=== PATIENT | female | born 1965 | race Two or more races ===

== ENCOUNTER 2016-12-19 09:40 | Emergency (ER) | payer MEDICAID, MEDICARE, OTHER ==
[~2016-12-19] VITALS: Ht 162.6 cm; Wt 54.0 kg
[2016-12-19 10:18] VITALS: BP 171/82
[2016-12-19] MEDS ORDERED: ACETAMINOPHEN 500 MG TAB PO ONE (10:45)
[2016-12-19] MEDS ORDERED: KETOROLAC TROMETH 60MG/2ML VIAL IM ONE (10:45)
== END 2016-12-19 13:44 | disposition home or self-care (01) ==
LOC: ER 09:40 → EDBD 09:40 → ER 13:44
DX: S39.012A Strain of muscle, fascia and tendon of lower back, initial encounter (principal); S76.011A Strain of muscle, fascia and tendon of right hip, initial encounter; I10 Essential (primary) hypertension; G89.29 Other chronic pain; M54.5 Low back pain; V43.52XA Car driver injured in collision with other type car in traffic accident, initial encounter; Y93.89 Activity, other specified; Y92.89 Other specified places as the place of occurrence of the external cause; Y99.8 Other external cause status
CPT/HCPCS: 72100; 73502

== ENCOUNTER 2018-12-05 12:50 | Emergency (ER) | payer OTHER ==
[~2018-12-05] VITALS: Ht 162.6 cm; Wt 68.0 kg
[2018-12-05 14:35] VITALS: BP 148/92
== END 2018-12-05 16:22 | disposition home or self-care (01) ==
LOC: EDBD 12:50 → ER 12:58
DX: S16.1XXA Strain of muscle, fascia and tendon at neck level, initial encounter (principal); S30.0XXA Contusion of lower back and pelvis, initial encounter; R51 Headache; I12.9 Hypertensive chronic kidney disease with stage 1 through stage 4 chronic kidney disease, or unspecified chronic kidney disease; N18.9 Chronic kidney disease, unspecified; Z90.710 Acquired absence of both cervix and uterus; V49.49XA Driver injured in collision with other motor vehicles in traffic accident, initial encounter; Y93.89 Activity, other specified; Y99.8 Other external cause status; Y92.89 Other specified places as the place of occurrence of the external cause
CPT/HCPCS: 70450; 72125; 74176

== ENCOUNTER 2018-12-31 17:56 | Emergency (ER) | payer MEDICAID, OTHER ==
[~2018-12-31] VITALS: Ht 162.6 cm; Wt 61.7 kg
[2018-12-31] MEDS ORDERED: cefTRIAXone SOD 1,000 MG VL IM ONE (20:30)
[2018-12-31] MEDS ORDERED: DexAMETHasone SOD PHOS 10MG/1ML VIAL INJ IM ONE (20:30)
[2018-12-31] MEDS ORDERED: ACETAMINOPHEN/CODEINE#3 (300/30mg) TAB PO ONE (20:30)
[2018-12-31 21:16] VITALS: BP 161/86
== END 2018-12-31 21:38 | disposition home or self-care (01) ==
LOC: ER 18:02
DX: J06.9 Acute upper respiratory infection, unspecified (principal); I12.9 Hypertensive chronic kidney disease with stage 1 through stage 4 chronic kidney disease, or unspecified chronic kidney disease; N18.9 Chronic kidney disease, unspecified; Z90.710 Acquired absence of both cervix and uterus
CPT/HCPCS: 96372; 99283; J0696; J1100

== ENCOUNTER 2020-04-03 14:53 | Inpatient (IN) | payer MEDICAID ==
[~2020-04-03] VITALS: Ht 162.6 cm; Wt 60.2 kg
[2020-04-03 16:25] LABS: Urine Bacteria NONE SEEN /hpf (None Seen); Urine Blood Negative /uL (Negative); Urine Specific Gravity 1.016 (1.001-1.035); Urine WBC 6 /hpf (0 - 5)
[2020-04-03] MEDS ORDERED: ONDANSETRON ODT 4 MG TAB PO ONE (17:30)
[2020-04-03 17:54] LABS: Hemoglobin 12.6 g/dL (12.2-16.2); Mean Corpuscular Hemoglobin 30.4 pg (28.0-32.0); Mean Corpuscular Volume 89.5 fL (80.0-100.0); Red Blood Cells 4.14 10^6/uL (4.0-5.20); Red Cell Distribution Width 13.5 % (11.8-14.3); White Blood Cell 12.2 10^3/uL (4.4-10.8)
[2020-04-03 17:55] LABS: Basophils % (manual) 0 (0.0-2.0); Blast Cells 0; Eosinophils % (manual) 0 (0-7); Metamyelocytes % 0; Monocytes % (manual) 0 (0-12); Promyelocytes % 0; Reactive Lymphocytes 0
[2020-04-03 18:06] LABS: Band Neutrophils % (manual) 20; Lymphocytes % (manual) 1 (10.0-50.0); Myelocytes % 3
[2020-04-03 18:13] LABS: Albumin 2.7 g/dL (3.4-5.0); Calcium 8.6 mg/dL (8.5-10.1); Potassium 4.6 mmol/L (3.5-5.1)
[2020-04-03 18:17] LABS: BUN/Creatinine Ratio 15.5; Bilirubin, Total 0.5 mg/dL (0.2-1.0); Total Protein 6.7 g/dL (6.4-8.2)
[2020-04-03] MEDS ORDERED: ONDANSETRON HCL 4 MG/2 ML VIAL IV PRN (19:45)
[2020-04-03] MEDS ORDERED: REMDESIVIR PER PHARMACY 0 ML IV SCH (19:45)
[2020-04-03] MEDS ORDERED: NITROGLYCERIN 0.4 MG SL TAB SL PRN (19:45)
[2020-04-03] MEDS ORDERED: hydrALAZINE HCL 20 MG/ML VL IV PRN (19:45)
[2020-04-03] MEDS ORDERED: HYDROcodone-ACET 5/325MG TAB PO PRN (19:45)
[2020-04-03] MEDS ORDERED: MORPHINE SULFATE INJECTION 2 MG/ML SYRG IV PRN ×2 (19:45)
[2020-04-03 20:18] LABS: Lactate Dehydrogenase 267 U/L (84-246)
[2020-04-03 20:25] LABS: CRP High Sensitivity > 19.0 mg/dL (< 0.3)
[2020-04-03] MEDS: BUDESONIDE (INHALATION) 180 MCG IH IN SCH (22:00)
[2020-04-03] MEDS ORDERED: REMDESIVIR 200 MG in NS 210ml LOADING DOSE ADULT IV ONE (22:00)
[2020-04-03] MEDS: LABETALOL HCL 200 MG TAB PO SCH (22:43)
[2020-04-03] MEDS: TACROLIMUS 1 MG CAP PO SCH (22:43)
[2020-04-03] MEDS: MYFORTIC 180 MG PO SCH (22:44)
[2020-04-03] MEDS: ENOXAPARIN SOD 40 MG/0.4 ML SYRINGE SC SCH (22:44)
[2020-04-03 23:23] VITALS: BP 125/65
[2020-04-04] MEDS ORDERED: TACR1CAP4 PO ×2 (02:22→14:39)
[2020-04-04] MEDS ORDERED: DILT180C49 PO (02:22)
[2020-04-04] MEDS ORDERED: NITR1CAP23 PO (02:22)
[2020-04-04] MEDS ORDERED: PRED20TA2 PO (02:22)
[2020-04-04] MEDS ORDERED: CINA30TA2 PO (02:22)
[2020-04-04] MEDS ORDERED: ACET-1304 PO ×2 (02:22→02:23)
[2020-04-04] MEDS ORDERED: FOLI1TAB6 PO (02:22)
[2020-04-04] MEDS ORDERED: LABE200T7 PO (02:22)
[2020-04-04] MEDS ORDERED: CHOL20TA PO (02:22)
[2020-04-04] MEDS ORDERED: MYCO180T PO (02:22)
[2020-04-04] MEDS ORDERED: PRED2.5T4 PO ×2 (06:22→14:39)
[2020-04-04] MEDS: ACETAMINOPHEN 500 MG TAB PO PRN (06:59)
[2020-04-04] MEDS: BUDESONIDE (INHALATION) 180 MCG IH IN SCH ×2 (07:12→21:53)
[2020-04-04 07:14] LABS: Basophils # (auto) 0 10 ^3/uL (0-0.2); Basophils % (auto) 0.2 % (0.0-2.0); Eosinophils # (auto) 0 10 ^3/uL (0-0.8); Eosinophils % (auto) 0.1 % (0.0-7.0); Lymphocytes # (auto) 0.4 10 ^3/uL (0.4-5.4); Lymphocytes % (auto) 4.1 % (10.0-50.0); Mean Corpuscular Hemoglobin 30.5 pg (28.0-32.0); Mean Corpuscular Hgb Conc. 34.3 g/dL (32.0-36.0); Mean Corpuscular Volume 88.9 fL (80.0-100.0); Monocytes # (auto) 0.5 10 ^3/uL (0-1.3); Monocytes % (auto) 5.5 % (0.0-12.0); Neutrophils # (auto) 7.6 10 ^3/uL (1.6-8.6); Neutrophils % (auto) 90.1 % (37.0-80.0); Nucleated Red Blood Cells % 0.2 %; Red Blood Cells 3.94 10^6/uL (4.0-5.20); Red Cell Distribution Width 13.8 % (11.8-14.3); White Blood Cell 8.5 10^3/uL (4.4-10.8)
[2020-04-04 07:20] LABS: Potassium 4.4 mmol/L (3.5-5.1)
[2020-04-04 07:36] LABS: Albumin 2.2 g/dL (3.4-5.0); BUN/Creatinine Ratio 14.9; Bilirubin, Total 0.3 mg/dL (0.2-1.0); Calcium 8.4 mg/dL (8.5-10.1)
[2020-04-04 08:00] VITALS: BP 139/67
[2020-04-04] MEDS: ALBUTEROL SULF HFA 90MCG INH 200DOSE IN PRN ×2 (09:23→21:53)
[2020-04-04] MEDS: AZITHROMYCIN 500MG/ 250ML 250 ML IV SCH (10:00)
[2020-04-04] MEDS: DexAMETHasone SOD PHOS 10MG/1ML VIAL INJ IV SCH (10:16)
[2020-04-04] MEDS: FAMOTIDINE 20 MG TAB PO SCH (10:16)
[2020-04-04] MEDS: ZINC SULFATE 220mg CAP or TAB PO SCH (10:16)
[2020-04-04] MEDS: cefTRIAXone 1GM/50ML D5W 50 ML IV SCH (10:16)
[2020-04-04] MEDS: CHOLECALCIFEROL (VITD3) 2,000 UNIT CAP/TAB PO SCH (10:17)
[2020-04-04] MEDS: ENOXAPARIN SOD 40 MG/0.4 ML SYRINGE SC SCH ×2 (10:17→21:35)
[2020-04-04] MEDS: ASCORBIC ACID 1,000 MG TAB PO SCH (10:17)
[2020-04-04] MEDS: LABETALOL HCL 200 MG TAB PO SCH ×2 (10:19→21:43)
[2020-04-04] MEDS: dilTIAZem HCL 180MG ER CAP PO SCH (10:20)
[2020-04-04] MEDS: TACROLIMUS 1 MG CAP PO SCH ×2 (10:22→21:35)
[2020-04-04] MEDS: MYFORTIC 180 MG PO SCH ×2 (10:22→21:34)
[2020-04-04] MEDS ORDERED: OMEP-260 PO (14:39)
[2020-04-04] MEDS ORDERED: AMLO-489 PO (14:39)
[2020-04-04] MEDS: REMDESIVIR 100mg 100 MG in SODIUM CHL 0.9% 230 ML IV SCH (15:50)
[2020-04-04 15:58] VITALS: BP 143/79
[2020-04-05] VITALS (8 sets, daily range): BP systolic 125–153; BP diastolic 72–83
[2020-04-05] MEDS: ACETAMINOPHEN 500 MG TAB PO PRN (05:20)
[2020-04-05 08:48] LABS: Potassium 4.8 mmol/L (3.5-5.1)
[2020-04-05 09:06] LABS: Albumin 2.5 g/dL (3.4-5.0); BUN/Creatinine Ratio 29.4; Bilirubin, Total 0.3 mg/dL (0.2-1.0); Calcium 8.9 mg/dL (8.5-10.1); Magnesium 2.2 mg/dL (1.6-2.6); Total Protein 6.6 g/dL (6.4-8.2)
[2020-04-05] MEDS: cefTRIAXone 1GM/50ML D5W 50 ML IV SCH (09:27)
[2020-04-05] MEDS: ZINC SULFATE 220mg CAP or TAB PO SCH (09:28)
[2020-04-05] MEDS: DexAMETHasone SOD PHOS 10MG/1ML VIAL INJ IV SCH (09:28)
[2020-04-05] MEDS: MYFORTIC 180 MG PO SCH (09:28)
[2020-04-05] MEDS: LABETALOL HCL 200 MG TAB PO SCH (09:29)
[2020-04-05] MEDS: ASCORBIC ACID 1,000 MG TAB PO SCH (09:29)
[2020-04-05] MEDS: FAMOTIDINE 20 MG TAB PO SCH (09:29)
[2020-04-05] MEDS: TACROLIMUS 1 MG CAP PO SCH (09:29)
[2020-04-05] MEDS: CHOLECALCIFEROL (VITD3) 2,000 UNIT CAP/TAB PO SCH (09:30)
[2020-04-05] MEDS: ENOXAPARIN SOD 40 MG/0.4 ML SYRINGE SC SCH (09:30)
[2020-04-05] MEDS: BUDESONIDE (INHALATION) 180 MCG IH IN SCH (12:01)
[2020-04-05] MEDS: AZITHROMYCIN 500MG/ 250ML 250 ML IV SCH (12:01)
[2020-04-05] MEDS ORDERED: ASPI-378 PO (12:33)
[2020-04-05] MEDS ORDERED: BUDE2SUS3 IN (12:33)
[2020-04-05] MEDS ORDERED: ASCO10003 PO (12:33)
[2020-04-05] MEDS ORDERED: ZINC220T6 PO (12:33)
[2020-04-05] MEDS ORDERED: ALBUAER3 IN (12:33)
[2020-04-05] MEDS ORDERED: DEX4T PO (12:33)
[2020-04-05] MEDS ORDERED: DOXY-286 PO (12:33)
[2020-04-05] MEDS: dilTIAZem HCL 180MG ER CAP PO SCH (12:44)
[2020-04-05] MEDS: REMDESIVIR 100mg 100 MG in SODIUM CHL 0.9% 230 ML IV SCH (15:33)
== END 2020-04-05 18:00 | disposition home or self-care (01) | DRG 720 ==
LOC: ER 14:53 → TELE 14:54 → TELE-EAST 23:45
PROVIDERS: ADMIT Nurse Practitioner Acute Care; ATTEND Internal Medicine
PROC: XW033E5 Introduction of Remdesivir Anti-infective into Peripheral Vein, Percutaneous Approach, New Technology Group 5 (ICD-10-PCS; 2020-04-03)
PROC: XW13325 Transfusion of Convalescent Plasma (Nonautologous) into Peripheral Vein, Percutaneous Approach, New Technology Group 5 (ICD-10-PCS; principal; 2020-04-05)
DX: A41.89 Other specified sepsis (principal); U07.1 COVID-19; J12.82 Pneumonia due to coronavirus disease 2019; E87.1 Hypo-osmolality and hyponatremia; D68.59 Other primary thrombophilia; Z94.0 Kidney transplant status; I12.9 Hypertensive chronic kidney disease with stage 1 through stage 4 chronic kidney disease, or unspecified chronic kidney disease; N18.9 Chronic kidney disease, unspecified; Z90.710 Acquired absence of both cervix and uterus
CPT/HCPCS: 36415; 71045; 74176; 80053; 80197; 81001; 82306; 82728; 83605; 83615; 83735; 84443; 85007; 85025; 85027; 85379; 86141; 86850; 86900; 86901; 87040; 87426; 87804; 93005; 94640; 96365; 96367; G0378; J0696; J1100; J7507; Q0162

== ENCOUNTER 2020-04-25 23:35 | Emergency (ER) | payer MEDICAID ==
[~2020-04-25] VITALS: Ht 162.6 cm; Wt 60.8 kg
[~2020-04-25 23:35] MED LIST: ACET-1304 PO; ALBUAER3 IN; AMLO-489 PO; ASCO10003 PO; ASPI-378 PO; BUDE2SUS3 IN; CHOL20TA PO; CINA30TA2 PO; DEX4T PO; DILT180C49 PO; DOXY-286 PO; FOLI1TAB6 PO; LABE200T7 PO; MYCO180T PO; NITR1CAP23 PO; OMEP-260 PO; PRED2.5T4 PO; TACR1CAP4 PO; ZINC220T6 PO
[2020-04-26] MEDS ORDERED: ONDANSETRON HCL 4 MG/2 ML VIAL IV ONE (00:30)
[2020-04-26] MEDS ORDERED: MECLIZINE HCL 25 MG TAB PO ONE (00:30)
[2020-04-26 01:00] VITALS: BP 157/78
[2020-04-26 01:10] LABS: Basophils # (auto) 0 10 ^3/uL (0-0.2); Basophils % (auto) 0.6 % (0.0-2.0); Eosinophils # (auto) 0.2 10 ^3/uL (0-0.8); Eosinophils % (auto) 3.3 % (0.0-7.0); Hematocrit 34.5 % (36.0-46.0); Hemoglobin 11.5 g/dL (12.2-16.2); Lymphocytes # (auto) 0.5 10 ^3/uL (0.4-5.4); Lymphocytes % (auto) 9.5 % (10.0-50.0); Mean Corpuscular Hemoglobin 30.8 pg (28.0-32.0); Mean Corpuscular Hgb Conc. 33.4 g/dL (32.0-36.0); Mean Corpuscular Volume 92.2 fL (80.0-100.0); Monocytes # (auto) 0.5 10 ^3/uL (0-1.3); Monocytes % (auto) 9.5 % (0.0-12.0); Neutrophils # (auto) 4.3 10 ^3/uL (1.6-8.6); Neutrophils % (auto) 77.1 % (37.0-80.0); Nucleated Red Blood Cells % 0.2 %; Platelet Count (auto) 152 10^3/uL (140-450); Red Blood Cells 3.74 10^6/uL (4.0-5.20); White Blood Cell 5.6 10^3/uL (4.4-10.8)
[2020-04-26 01:27] LABS: Alanine Aminotransferase 26 U/L (13-56); Albumin 3.5 g/dL (3.4-5.0); Anion Gap 10 (5-15); Aspartate Aminotransferase 20 U/L (15-37); BUN/Creatinine Ratio 19.6; Blood Urea Nitrogen 21 mg/dL (7-18); Calcium 8.3 mg/dL (8.5-10.1); Carbon Dioxide 24 mmol/L (21-32); Chloride 105 mmol/L (98-107); GFR African American 69 mL/min; GFR Non-African American 57 mL/min; Glucose 108 mg/dL (74-106); Potassium 4.1 mmol/L (3.5-5.1); Sodium 139 mmol/L (136-145)
[2020-04-26 01:32] LABS: Alkaline Phosphatase 170 U/L (45-117); Bilirubin, Total 0.7 mg/dL (0.2-1.0); Total Protein 6.5 g/dL (6.4-8.2)
== END 2020-04-26 02:54 | disposition home or self-care (01) ==
LOC: ER 23:35
DX: U07.1 COVID-19 (principal); J12.82 Pneumonia due to coronavirus disease 2019; R42 Dizziness and giddiness; I12.9 Hypertensive chronic kidney disease with stage 1 through stage 4 chronic kidney disease, or unspecified chronic kidney disease; N18.9 Chronic kidney disease, unspecified; Z90.710 Acquired absence of both cervix and uterus
CPT/HCPCS: 36415; 71045; 80053; 83880; 84484; 85025; 93005; 96374; 99285; J2405; J8597

== ENCOUNTER → 2022-09-26 00:28 | Emergency (ER) | payer MEDICAID ==
[~2022-09-26 00:28] MED LIST changes: +ACET500T58 PO; -AMLO-489 PO; +AMLO1TAB22 PO; +CINA30TA14 PO; +CIPR-173 PO; +DILT120C20 PO; +FOLI-119 PO; -FOLI1TAB6 PO; +LOSA50TA46 PO; +METR500T PO; -OMEP-260 PO; +OMEP1CAP70 PO; +PRE1T PO; +TACR1CAP19 OR
== END | disposition left against medical advice (07) ==
LOC: ER 00:28
DX: R52 Pain, unspecified (principal); Z53.21 Procedure and treatment not carried out due to patient leaving prior to being seen by health care provider

== ENCOUNTER 2023-02-22 09:26 | Inpatient (IN) | payer MEDICAID ==
[~2023-02-22] VITALS: Ht 152.4 cm; Wt 57.9 kg
[~2023-02-22 09:26] MED LIST changes: -TACR1CAP19 OR; +TACR1CAP19 PO
[2023-02-22] MEDS ORDERED: SODIUM CHLORIDE 0.9% 1,000 ML IV ONE ×2 (10:30→19:00)
[2023-02-22 11:32] LABS: Urine Bacteria FEW /hpf (None Seen); Urine Blood TRACE /uL (Negative); Urine Clarity Clear (Clear); Urine Protein, UAD TRACE (Negative); Urine Specific Gravity 1.009 (1.001-1.035); Urine Urobilinogen Normal (Negative); Urine WBC 8 /hpf (0 - 5); Urine pH 5.5 (5.0-8.0)
[2023-02-22 11:37] LABS: Urine Color Straw (Yellow)
[2023-02-22 11:55] LABS: Basophils # (auto) 0 10 ^3/uL (0-0.2); Basophils % (auto) 0.8 % (0.0-2.0); Eosinophils # (auto) 0.1 10 ^3/uL (0-0.8); Eosinophils % (auto) 2.1 % (0.0-7.0); Hematocrit 37.1 % (36.0-46.0); Hemoglobin 12.2 g/dL (12.2-16.2); Lymphocytes # (auto) 0.7 10 ^3/uL (0.4-5.4); Lymphocytes % (auto) 12.5 % (10.0-50.0); Mean Corpuscular Hemoglobin 30.2 pg (28.0-32.0); Mean Corpuscular Hgb Conc. 32.9 g/dL (32.0-36.0); Mean Corpuscular Volume 91.7 fL (80.0-100.0); Monocytes # (auto) 0.4 10 ^3/uL (0-1.3); Monocytes % (auto) 7.1 % (0.0-12.0); Neutrophils # (auto) 4.3 10 ^3/uL (1.6-8.6); Neutrophils % (auto) 77.5 % (37.0-80.0); Nucleated Red Blood Cells % 0.1 %; Red Blood Cells 4.05 10^6/uL (4.0-5.20); Red Cell Distribution Width 14.9 % (11.8-14.3); White Blood Cell 5.5 10^3/uL (4.4-10.8)
[2023-02-22 12:15] LABS: Alanine Aminotransferase 14 U/L (7-40); Albumin 4.3 g/dL (3.2-4.8); Alkaline Phosphatase 131 U/L (46-116); Anion Gap 8 (5-15); Aspartate Aminotransferase 20 U/L (13-40); BUN/Creatinine Ratio 18.9 (10.0-20.0); Blood Urea Nitrogen 25 mg/dL (9-23); Calcium 9.3 mg/dL (8.5-10.1); Carbon Dioxide 22 mmol/L (20-30); Chloride 109 mmol/L (98-107); Glucose 125 mg/dL (74-106); Potassium 4.2 mmol/L (3.5-5.1); Sodium 139 mmol/L (136-145)
[2023-02-22] MEDS ORDERED: CEFTRIAXONE SODIUM 2 GM in D5W 5% 100 ML IV ONE (12:15)
[2023-02-22 12:16] LABS: Bilirubin, Total 0.6 mg/dL (0.2-1.0); Total Protein 6.7 g/dL (5.7-8.2)
[2023-02-22] MEDS ORDERED: ONDANSETRON HCL 4 MG/2 ML VIAL IV PRN (19:00)
[2023-02-22] MEDS ORDERED: hydrALAZINE HCL 20 MG/ML VL IV PRN (19:15)
[2023-02-22] MEDS ORDERED: MYCOPHENOLATE 180 MG PO SCH (22:00)
[2023-02-22] MEDS ORDERED: TACROLIMUS 1 MG CAP PO SCH (22:00)
[2023-02-22] MEDS ORDERED: TACROLIMUS 1 MG PO SCH (22:15)
[2023-02-22] MEDS: MYCOPHENOLATE 180 MG PO SCH (22:40)
[2023-02-22] MEDS: ACETAMINOPHEN 325 MG TAB PO PRN (22:53)
[2023-02-22] MEDS: LABETALOL HCL 200 MG TAB PO SCH (22:53)
[2023-02-23] VITALS (8 sets, daily range): BP systolic 136–157; BP diastolic 70–74; PULSE 70–84; RESP 17–18; TEMP 97.6–98.3; O2SAT 95–99
[2023-02-23] MEDS ORDERED: PNEUMOCOCCAL VACC POLYS 25 MCG/0.5 ML VIAL IM ONE (05:30)
[2023-02-23 05:50] LABS: Basophils # (auto) 0 10 ^3/uL (0-0.2); Basophils % (auto) 0.6 % (0.0-2.0); Eosinophils # (auto) 0.2 10 ^3/uL (0-0.8); Eosinophils % (auto) 3.1 % (0.0-7.0); Hemoglobin 11.7 g/dL (12.2-16.2); Lymphocytes # (auto) 1.3 10 ^3/uL (0.4-5.4); Lymphocytes % (auto) 25.4 % (10.0-50.0); Mean Corpuscular Hemoglobin 30.6 pg (28.0-32.0); Mean Corpuscular Hgb Conc. 32.5 g/dL (32.0-36.0); Mean Corpuscular Volume 94.1 fL (80.0-100.0); Monocytes # (auto) 0.7 10 ^3/uL (0-1.3); Monocytes % (auto) 13.5 % (0.0-12.0); Neutrophils # (auto) 2.8 10 ^3/uL (1.6-8.6); Neutrophils % (auto) 57.4 % (37.0-80.0); Nucleated Red Blood Cells % 0.3 %; Red Blood Cells 3.83 10^6/uL (4.0-5.20); Red Cell Distribution Width 15.2 % (11.8-14.3); White Blood Cell 4.9 10^3/uL (4.4-10.8)
[2023-02-23 06:12] LABS: Alanine Aminotransferase 13 U/L (7-40); Albumin 3.9 g/dL (3.2-4.8); Alkaline Phosphatase 131 U/L (46-116); Anion Gap 8 (5-15); Aspartate Aminotransferase 14 U/L (13-40); BUN/Creatinine Ratio 19.7 (10.0-20.0); Blood Urea Nitrogen 26 mg/dL (9-23); Calcium 8.9 mg/dL (8.7-10.4); Carbon Dioxide 21 mmol/L (20-30); Chloride 112 mmol/L (98-107); Glucose 88 mg/dL (74-106); Potassium 4.5 mmol/L (3.5-5.1); Sodium 141 mmol/L (136-145)
[2023-02-23 06:13] LABS: Bilirubin, Total 0.4 mg/dL (0.2-1.0); Total Protein 6.3 g/dL (5.7-8.2)
[2023-02-23] MEDS ORDERED: cefTRIAXone 1GM/50ML D5W 50 ML IV SCH (09:00)
[2023-02-23] MEDS ORDERED: MEROPENEM 1GM IVPB 100 ML IV ONE (09:30)
[2023-02-23] MEDS: SODIUM CHLORIDE 0.9% 1,000 ML IV SCH ×3 (10:34→23:35)
[2023-02-23] MEDS: dilTIAZem HCL 180MG ER CAP PO SCH (10:36)
[2023-02-23] MEDS: LABETALOL HCL 200 MG TAB PO SCH ×2 (10:37→22:19)
[2023-02-23] MEDS: predniSONE 1 MG TAB PO SCH (10:38)
[2023-02-23] MEDS: CINACALCET HYDROCHLORIDE 30 MG TAB PO SCH (10:59)
[2023-02-23] MEDS: MYCOPHENOLATE 180 MG PO SCH (10:59)
[2023-02-23] MEDS ORDERED: TACROLIMUS 1 MG PO SCH ×2 (17:30→22:00)
[2023-02-23] MEDS ORDERED: TACROLIMUS 1 MG CAPSULE PO SCH ×2 (22:00)
[2023-02-23] MEDS: MEROPENEM 1GM IVPB 100 ML IV SCH (22:11)
[2023-02-23] MEDS: ACETAMINOPHEN 325 MG TAB PO PRN (22:19)
[2023-02-23] MEDS: MYCOPHENOLIC ACID 180 MG PO SCH (23:27)
[2023-02-24] VITALS (9 sets, daily range): BP systolic 123–169; BP diastolic 64–75; PULSE 65–83; RESP 16–18; TEMP 97.5–98.5; O2SAT 93–98
[2023-02-24 06:52] LABS: Basophils # (auto) 0 10 ^3/uL (0-0.2); Basophils % (auto) 0.7 % (0.0-2.0); Eosinophils # (auto) 0.1 10 ^3/uL (0-0.8); Eosinophils % (auto) 2.5 % (0.0-7.0); Hematocrit 35.8 % (36.0-46.0); Hemoglobin 11.8 g/dL (12.2-16.2); Lymphocytes # (auto) 1.1 10 ^3/uL (0.4-5.4); Lymphocytes % (auto) 28.7 % (10.0-50.0); Mean Corpuscular Hemoglobin 30.5 pg (28.0-32.0); Mean Corpuscular Hgb Conc. 32.9 g/dL (32.0-36.0); Mean Corpuscular Volume 92.7 fL (80.0-100.0); Monocytes # (auto) 0.5 10 ^3/uL (0-1.3); Monocytes % (auto) 12.9 % (0.0-12.0); Neutrophils # (auto) 2.2 10 ^3/uL (1.6-8.6); Neutrophils % (auto) 55.2 % (37.0-80.0); Red Blood Cells 3.86 10^6/uL (4.0-5.20); White Blood Cell 3.9 10^3/uL (4.4-10.8)
[2023-02-24 07:05] LABS: Chloride 113 mmol/L (98-107); Potassium 3.9 mmol/L (3.5-5.1); Sodium 142 mmol/L (136-145)
[2023-02-24 07:06] LABS: Anion Gap 8 (5-15); Carbon Dioxide 21 mmol/L (20-30)
[2023-02-24 07:07] LABS: Calcium 9.1 mg/dL (8.5-10.1)
[2023-02-24 07:12] LABS: BUN/Creatinine Ratio 17.2 (10.0-20.0); Blood Urea Nitrogen 21 mg/dL (9-23); Glucose 81 mg/dL (74-106)
[2023-02-24] MEDS ORDERED: SODIUM CHLORIDE LOCK 10 ML ONE (08:56)
[2023-02-24] MEDS: predniSONE 1 MG TAB PO SCH (10:24)
[2023-02-24] MEDS: LABETALOL HCL 200 MG TAB PO SCH ×2 (10:25→22:21)
[2023-02-24] MEDS: dilTIAZem HCL 180MG ER CAP PO SCH (10:26)
[2023-02-24] MEDS: MEROPENEM 1GM IVPB 100 ML IV SCH ×2 (10:35→22:18)
[2023-02-24] MEDS: CINACALCET HYDROCHLORIDE 30 MG TAB PO SCH (10:36)
[2023-02-24] MEDS: MYCOPHENOLIC ACID 180 MG PO SCH ×2 (11:01→22:23)
[2023-02-24] MEDS: MIDAZOLAM HCL 5 MG/ML-1ML VIAL ONE ×2 (14:52→14:55)
[2023-02-24] MEDS: diphenhdrAMINE HCL 50 MG/1 ML VL ONE ×2 (14:52→14:54)
[2023-02-24] MEDS: fentaNYL CITRATE 100 MCG/2 ML VL ONE ×2 (14:52→14:55)
[2023-02-24] MEDS ORDERED: LIDOCAINE VISCOUS 2% 15ML UD ONE (17:19)
[2023-02-24] MEDS: TACROLIMUS 1 MG PO SCH (22:24)
[2023-02-24] MEDS: SODIUM CHLORIDE 0.9% 1,000 ML IV SCH (23:00)
[2023-02-25 05:00] VITALS: BP 135/70; PULSE 92; RESP 18; TEMP 98; O2SAT 97
[2023-02-25 09:00] VITALS: BP 130/81; PULSE 91; RESP 18; TEMP 98.2; O2SAT 98
[2023-02-25 09:30] LABS: Hepatitis B Surface Antigen Negative (Negative)
[2023-02-25] MEDS: LABETALOL HCL 200 MG TAB PO SCH (09:49)
[2023-02-25] MEDS: CINACALCET HYDROCHLORIDE 30 MG TAB PO SCH (09:50)
[2023-02-25] MEDS: dilTIAZem HCL 180MG ER CAP PO SCH (09:50)
[2023-02-25 09:51] LABS: Hepatitis C Antibody Negative (Negative)
[2023-02-25] MEDS: MEROPENEM 1GM IVPB 100 ML IV SCH (09:51)
[2023-02-25] MEDS: MYCOPHENOLIC ACID 180 MG PO SCH (09:51)
[2023-02-25] MEDS: TACROLIMUS 1 MG PO SCH (09:52)
[2023-02-25] MEDS ORDERED: CEFD300C2 PO (09:53)
[2023-02-25] MEDS: predniSONE 1 MG TAB PO SCH (10:00)
[2023-02-25 10:46] LABS: Chloride 112 mmol/L (98-107); Potassium 4.3 mmol/L (3.5-5.1); Sodium 142 mmol/L (136-145)
[2023-02-25 10:47] LABS: Anion Gap 4 (5-15); Carbon Dioxide 26 mmol/L (20-30)
[2023-02-25 10:48] LABS: Calcium 9.4 mg/dL (8.5-10.1)
[2023-02-25 10:52] LABS: BUN/Creatinine Ratio 14.4 (10.0-20.0); Blood Urea Nitrogen 16 mg/dL (9-23); Glucose 93 mg/dL (74-106)
[2023-02-25 12:54] VITALS: BP 148/82; PULSE 73; RESP 17; TEMP 98.3; O2SAT 97
[2023-02-25 13:27] VITALS: BP 130/81; PULSE 91; TEMP 36.8
== END 2023-02-25 14:23 | disposition home or self-care (01) | DRG 720 ==
LOC: ER 09:26 → OVERFLOW 18:53 → CENTRAL 02-23 02:40
PROVIDERS: ADMIT Nurse Practitioner Family; ATTEND Internal Medicine
PROC: 0DB68ZX Excision of Stomach, Via Natural or Artificial Opening Endoscopic, Diagnostic (ICD-10-PCS; 2023-02-24)
PROC: 0DB48ZX Excision of Esophagogastric Junction, Via Natural or Artificial Opening Endoscopic, Diagnostic (ICD-10-PCS; 2023-02-24)
PROC: 0DB98ZX Excision of Duodenum, Via Natural or Artificial Opening Endoscopic, Diagnostic (ICD-10-PCS; principal; 2023-02-24 14:37)
DX: A41.9 Sepsis, unspecified organism (principal); N17.0 Acute kidney failure with tubular necrosis; T86.13 Kidney transplant infection; K22.10 Ulcer of esophagus without bleeding; N13.6 Pyonephrosis; K29.70 Gastritis, unspecified, without bleeding; Y83.0 Surgical operation with transplant of whole organ as the cause of abnormal reaction of the patient, or of later complication, without mention of misadventure at the time of the procedure; N18.31 Chronic kidney disease, stage 3a; I12.9 Hypertensive chronic kidney disease with stage 1 through stage 4 chronic kidney disease, or unspecified chronic kidney disease; K44.9 Diaphragmatic hernia without obstruction or gangrene; E03.9 Hypothyroidism, unspecified; Z79.82 Long term (current) use of aspirin; Z87.440 Personal history of urinary (tract) infections; Z90.710 Acquired absence of both cervix and uterus; Z79.899 Other long term (current) drug therapy; Z82.3 Family history of stroke; Z86.73 Personal history of transient ischemic attack (TIA), and cerebral infarction without residual deficits; Z99.2 Dependence on renal dialysis; Y92.89 Other specified places as the place of occurrence of the external cause
CPT/HCPCS: 36415; 43239; 74176; 80048; 80053; 80197; 81001; 83605; 84443; 85025; 86803; 87040; 87086; 87340; 96361; 96365; G0378; J0696; J2185; J2250; J7060; J7507

== ENCOUNTER 2023-03-07 22:03 | Inpatient (IN) | payer MEDICAID ==
[~2023-03-07] VITALS: Ht 162.6 cm; Wt 65.1 kg
[~2023-03-07 22:03] MED LIST changes: -ACET500T58 PO; +CEFD300C2 PO; -CINA30TA14 PO; -CIPR-173 PO; -DILT120C20 PO; -DOXY-286 PO; -METR500T PO; -NITR1CAP23 PO; -PRE1T PO; -TACR1CAP4 PO
[2023-03-07 23:14] LABS: Basophils # (auto) 0 10 ^3/uL (0-0.2); Basophils % (auto) 0.6 % (0.0-2.0); Eosinophils # (auto) 0.1 10 ^3/uL (0-0.8); Eosinophils % (auto) 0.9 % (0.0-7.0); Hematocrit 37.3 % (36.0-46.0); Hemoglobin 12.1 g/dL (12.2-16.2); Lymphocytes # (auto) 0.8 10 ^3/uL (0.4-5.4); Lymphocytes % (auto) 9.1 % (10.0-50.0); Mean Corpuscular Hemoglobin 29.8 pg (28.0-32.0); Mean Corpuscular Hgb Conc. 32.4 g/dL (32.0-36.0); Monocytes # (auto) 0.6 10 ^3/uL (0-1.3); Monocytes % (auto) 6.4 % (0.0-12.0); Neutrophils # (auto) 7.4 10 ^3/uL (1.6-8.6); Red Blood Cells 4.05 10^6/uL (4.0-5.20); Red Cell Distribution Width 15.1 % (11.8-14.3)
[2023-03-07 23:34] LABS: Alanine Aminotransferase 36 U/L (7-40); Albumin 4.4 g/dL (3.2-4.8); Alkaline Phosphatase 126 U/L (46-116); Anion Gap 6 (5-15); Aspartate Aminotransferase 37 U/L (13-40); BUN/Creatinine Ratio 12.9 (10.0-20.0); Bilirubin, Total 0.9 mg/dL (0.2-1.0); Blood Urea Nitrogen 20 mg/dL (9-23); Calcium 9.2 mg/dL (8.7-10.4); Carbon Dioxide 24 mmol/L (20-30); Chloride 108 mmol/L (98-107); Glucose 105 mg/dL (74-106); Sodium 138 mmol/L (136-145); Total Protein 6.9 g/dL (5.7-8.2)
[2023-03-07 23:39] LABS: Rapid Influenza A Negative (Negative); Rapid Influenza B Negative (Negative)
[2023-03-07 23:41] LABS: COVID19 ANTIGEN SOFIA FIA NEGATIVE (NEGATIVE)
[2023-03-08 00:31] LABS: Urine Bacteria MANY /hpf (None Seen); Urine Blood TRACE /uL (Negative); Urine Clarity HAZY (Clear); Urine Color Colorless (Yellow); Urine Hyaline Cast FEW /lpf (0 - 2); Urine Protein, UAD 1+ (Negative); Urine Specific Gravity 1.008 (1.001-1.035); Urine Urobilinogen Normal (Negative); Urine WBC 144 /hpf (0 - 5); Urine WBC Clumps PRESENT /hpf (None Seen); Urine pH 5.5 (5.0-8.0)
[2023-03-08] MEDS ORDERED: CEFTRIAXONE SODIUM 2 GM in D5W 5% 100 ML IV ONE (01:15)
[2023-03-08] MEDS ORDERED: cefTRIAXone 1GM/50ML D5W 50 ML IV ONE ×2 (05:00)
[2023-03-08] MEDS ORDERED: SODIUM CHLORIDE 0.9% 1,000 ML IV SCH (08:45)
[2023-03-08] MEDS ORDERED: HYDROcodone-ACET 5/325MG TAB PO PRN (08:45)
[2023-03-08] MEDS ORDERED: KETOROLAC TROMETH 30 MG/ML 1ML VIAL IV ONE (08:45)
[2023-03-08] MEDS: cefTRIAXone 1GM/50ML D5W 50 ML IV SCH (09:42)
[2023-03-08] MEDS: SODIUM CHLORIDE 0.9% 1,000 ML IV SCH (11:00)
[2023-03-08] MEDS: LOSARTAN POTASSIUM 50 MG TAB PO SCH (11:32)
[2023-03-08] MEDS: FOLIC ACID 1 MG TAB PO SCH (11:32)
[2023-03-08] MEDS: dilTIAZem HCL 180MG ER CAP PO SCH (11:33)
[2023-03-08] MEDS: amLODIPine BESYLATE 5 MG TAB PO SCH (11:34)
[2023-03-08] MEDS: ASCORBIC ACID 1,000 MG TAB PO SCH (11:35)
[2023-03-08] MEDS: PANTOPRAZOLE 40 MG TAB PO SCH (11:35)
[2023-03-08] MEDS: ENOXAPARIN SOD 40 MG/0.4 ML SYRINGE SC SCH (11:36)
[2023-03-08] MEDS: CHOLECALCIFEROL (VITD3) 1,000UNIT=25mCg TAB PO SCH (11:36)
[2023-03-08] MEDS: ZINC SULFATE 220mg CAP or TAB PO SCH (11:45)
[2023-03-08] MEDS: LABETALOL HCL 200 MG TAB PO SCH ×2 (14:09→23:15)
[2023-03-08] MEDS: TACROLIMUS 1 MG CAP PO SCH ×2 (14:31→23:16)
[2023-03-08] MEDS: CINACALCET HYDROCHLORIDE 30 MG TAB PO SCH (14:33)
[2023-03-08] MEDS: predniSONE 1 MG TAB PO SCH (14:34)
[2023-03-08] MEDS: ASPirin-EC 81 mg tab PO SCH (14:34)
[2023-03-09] VITALS (7 sets, daily range): BP systolic 109–146; BP diastolic 50–74; PULSE 67–103; RESP 16–18; TEMP 98.5–99.4; O2SAT 97–98
[2023-03-09] MEDS ORDERED: TACR1GRA PO (00:24)
[2023-03-09] MEDS: ACETAMINOPHEN 325 MG TAB PO PRN ×2 (00:55→12:35)
[2023-03-09] MEDS: SODIUM CHLORIDE 0.9% 1,000 ML IV SCH ×2 (00:55→20:20)
[2023-03-09] MEDS ORDERED: CIPR500T4 PO (01:52)
[2023-03-09] MEDS ORDERED: DILT-29 PO (01:54)
[2023-03-09] MEDS ORDERED: MYCO180T PO (01:55)
[2023-03-09] MEDS ORDERED: CINA30TA2 PO (01:56)
[2023-03-09] MEDS ORDERED: PRED2.5T4 PO (02:16)
[2023-03-09 06:28] LABS: Basophils # (auto) 0 10 ^3/uL (0-0.2); Basophils % (auto) 0.4 % (0.0-2.0); Eosinophils # (auto) 0 10 ^3/uL (0-0.8); Eosinophils % (auto) 0.5 % (0.0-7.0); Hematocrit 33.8 % (36.0-46.0); Hemoglobin 11.2 g/dL (12.2-16.2); Lymphocytes # (auto) 0.7 10 ^3/uL (0.4-5.4); Lymphocytes % (auto) 8.2 % (10.0-50.0); Mean Corpuscular Hemoglobin 30.1 pg (28.0-32.0); Monocytes # (auto) 0.9 10 ^3/uL (0-1.3); Monocytes % (auto) 10.6 % (0.0-12.0); Neutrophils # (auto) 6.8 10 ^3/uL (1.6-8.6); Neutrophils % (auto) 80.3 % (37.0-80.0); Nucleated Red Blood Cells % 0.1 %; Red Blood Cells 3.71 10^6/uL (4.0-5.20); Red Cell Distribution Width 14.5 % (11.8-14.3); White Blood Cell 8.4 10^3/uL (4.4-10.8)
[2023-03-09 06:55] LABS: Alanine Aminotransferase 66 U/L (7-40); Albumin 3.7 g/dL (3.2-4.8); Alkaline Phosphatase 107 U/L (46-116); Anion Gap 9 (5-15); Aspartate Aminotransferase 41 U/L (13-40); BUN/Creatinine Ratio 10.9 (10.0-20.0); Bilirubin, Total 0.7 mg/dL (0.2-1.0); Blood Urea Nitrogen 16 mg/dL (9-23); Calcium 8.7 mg/dL (8.7-10.4); Carbon Dioxide 20 mmol/L (20-30); Chloride 111 mmol/L (98-107); Glucose 103 mg/dL (74-106); Potassium 3.5 mmol/L (3.5-5.1); Sodium 140 mmol/L (136-145)
[2023-03-09] MEDS: ENOXAPARIN SOD 40 MG/0.4 ML SYRINGE SC SCH (10:00)
[2023-03-09] MEDS: ASPirin-EC 81 mg tab PO SCH (10:28)
[2023-03-09] MEDS: ZINC SULFATE 220mg CAP or TAB PO SCH (10:28)
[2023-03-09] MEDS: cefTRIAXone 1GM/50ML D5W 50 ML IV SCH (10:28)
[2023-03-09] MEDS: predniSONE 1 MG TAB PO SCH (10:28)
[2023-03-09] MEDS: ASCORBIC ACID 1,000 MG TAB PO SCH (10:29)
[2023-03-09] MEDS: PANTOPRAZOLE 40 MG TAB PO SCH (10:29)
[2023-03-09] MEDS: CHOLECALCIFEROL (VITD3) 1,000UNIT=25mCg TAB PO SCH (10:29)
[2023-03-09] MEDS: FOLIC ACID 1 MG TAB PO SCH (10:29)
[2023-03-09] MEDS: amLODIPine BESYLATE 5 MG TAB PO SCH (10:30)
[2023-03-09] MEDS: dilTIAZem HCL 180MG ER CAP PO SCH (10:30)
[2023-03-09] MEDS: LOSARTAN POTASSIUM 50 MG TAB PO SCH (10:31)
[2023-03-09] MEDS: LABETALOL HCL 200 MG TAB PO SCH ×2 (10:45→21:21)
[2023-03-09] MEDS: TACROLIMUS 1 MG CAP PO SCH ×2 (10:48→22:45)
[2023-03-09] MEDS: CINACALCET HYDROCHLORIDE 30 MG TAB PO SCH (10:50)
[2023-03-09] MEDS ORDERED: MEROPENEM 1GM IVPB 100 ML IV ONE (11:45)
[2023-03-09] MEDS ORDERED: AMLO1TAB23 PO (17:12)
[2023-03-09] MEDS ORDERED: DILT-93 PO (17:13)
[2023-03-09] MEDS ORDERED: LOSA100T58 PO (17:14)
[2023-03-09] MEDS: MEROPENEM 1GM IVPB 100 ML IV SCH (21:24)
[2023-03-10] VITALS (7 sets, daily range): BP systolic 125–143; BP diastolic 48–76; PULSE 71–89; RESP 18–20; TEMP 98–99.9; O2SAT 97–99
[2023-03-10] MEDS: ACETAMINOPHEN 325 MG TAB PO PRN (04:25)
[2023-03-10 06:46] LABS: Basophils # (auto) 0 10 ^3/uL (0-0.2); Basophils % (auto) 0.2 % (0.0-2.0); Eosinophils # (auto) 0.1 10 ^3/uL (0-0.8); Eosinophils % (auto) 0.7 % (0.0-7.0); Hematocrit 32.6 % (36.0-46.0); Hemoglobin 10.6 g/dL (12.2-16.2); Lymphocytes # (auto) 0.7 10 ^3/uL (0.4-5.4); Lymphocytes % (auto) 9.6 % (10.0-50.0); Mean Corpuscular Hemoglobin 29.7 pg (28.0-32.0); Mean Corpuscular Hgb Conc. 32.6 g/dL (32.0-36.0); Mean Corpuscular Volume 91.2 fL (80.0-100.0); Monocytes # (auto) 0.8 10 ^3/uL (0-1.3); Monocytes % (auto) 10.7 % (0.0-12.0); Neutrophils # (auto) 6.1 10 ^3/uL (1.6-8.6); Neutrophils % (auto) 78.8 % (37.0-80.0); Red Blood Cells 3.58 10^6/uL (4.0-5.20); Red Cell Distribution Width 14.2 % (11.8-14.3); White Blood Cell 7.7 10^3/uL (4.4-10.8)
[2023-03-10 06:48] LABS: Chloride 112 mmol/L (98-107); Potassium 3.7 mmol/L (3.5-5.1); Sodium 142 mmol/L (136-145)
[2023-03-10 06:49] LABS: Anion Gap 10 (5-15); Carbon Dioxide 20 mmol/L (20-30)
[2023-03-10 06:55] LABS: BUN/Creatinine Ratio 10.9 (10.0-20.0); Blood Urea Nitrogen 16 mg/dL (9-23); Glucose 100 mg/dL (74-106)
[2023-03-10] MEDS: amLODIPine BESYLATE 5 MG TAB PO SCH (10:00)
[2023-03-10] MEDS: CINACALCET HYDROCHLORIDE 30 MG TAB PO SCH (10:00)
[2023-03-10] MEDS: LOSARTAN POTASSIUM 50 MG TAB PO SCH (10:00)
[2023-03-10] MEDS: LABETALOL HCL 200 MG TAB PO SCH (10:00)
[2023-03-10] MEDS: MEROPENEM 1GM IVPB 100 ML IV SCH (10:18)
[2023-03-10] MEDS: TACROLIMUS 1 MG CAP PO SCH ×2 (10:19→21:43)
[2023-03-10] MEDS: ASCORBIC ACID 1,000 MG TAB PO SCH (10:20)
[2023-03-10] MEDS: CHOLECALCIFEROL (VITD3) 1,000UNIT=25mCg TAB PO SCH (10:20)
[2023-03-10] MEDS: PANTOPRAZOLE 40 MG TAB PO SCH (10:20)
[2023-03-10] MEDS: FOLIC ACID 1 MG TAB PO SCH (10:20)
[2023-03-10] MEDS: predniSONE 1 MG TAB PO SCH (10:45)
[2023-03-10] MEDS: dilTIAZem HCL 180MG ER CAP PO SCH (10:46)
[2023-03-10] MEDS: ASPirin-EC 81 mg tab PO SCH (10:53)
[2023-03-10] MEDS: SODIUM CHLORIDE 0.9% 1,000 ML IV SCH (13:00)
[2023-03-11] VITALS (7 sets, daily range): BP systolic 135–162; BP diastolic 75–82; PULSE 77–89; RESP 18–20; TEMP 36.7; O2SAT 95–99
[2023-03-11] MEDS: SODIUM CHLORIDE 0.9% 1,000 ML IV SCH (05:40)
[2023-03-11 05:56] LABS: Anion Gap 8 (5-15); Carbon Dioxide 21 mmol/L (20-30); Chloride 113 mmol/L (98-107); Potassium 3.7 mmol/L (3.5-5.1); Sodium 142 mmol/L (136-145)
[2023-03-11 05:58] LABS: Calcium 8.8 mg/dL (8.7-10.4)
[2023-03-11 06:02] LABS: Glucose 99 mg/dL (74-106)
[2023-03-11 06:03] LABS: BUN/Creatinine Ratio 11.8 (10.0-20.0); Blood Urea Nitrogen 14 mg/dL (9-23)
[2023-03-11] MEDS: CINACALCET HYDROCHLORIDE 30 MG TAB PO SCH (10:00)
[2023-03-11] MEDS ORDERED: ERTAPENEM SOD INJ 1 GM in SODIUM CHL 0.9% 50 ML IV SCH (10:00)
[2023-03-11] MEDS: CHOLECALCIFEROL (VITD3) 1,000UNIT=25mCg TAB PO SCH (10:58)
[2023-03-11] MEDS: dilTIAZem HCL 180MG ER CAP PO SCH (10:59)
[2023-03-11] MEDS: ASPirin-EC 81 mg tab PO SCH (10:59)
[2023-03-11] MEDS: PANTOPRAZOLE 40 MG TAB PO SCH (10:59)
[2023-03-11] MEDS: LOSARTAN POTASSIUM 50 MG TAB PO SCH (11:00)
[2023-03-11] MEDS: predniSONE 1 MG TAB PO SCH (11:01)
[2023-03-11] MEDS: FOLIC ACID 1 MG TAB PO SCH (11:01)
[2023-03-11] MEDS: ASCORBIC ACID 1,000 MG TAB PO SCH (11:01)
[2023-03-11] MEDS: TACROLIMUS 1 MG CAP PO SCH (11:04)
== END 2023-03-11 19:01 | disposition home health service (06) | DRG 720 ==
LOC: ER 22:03 → OVERFLOW 03-08 08:46 → WEST WING 03-08 23:56
PROVIDERS: ADMIT Nurse Practitioner Family; ATTEND Internal Medicine
PROC: 05HA33Z Insertion of Infusion Device into Left Brachial Vein, Percutaneous Approach (ICD-10-PCS; principal; 2023-03-11)
PROC: B54NZZA Ultrasonography of Left Upper Extremity Veins, Guidance (ICD-10-PCS; 2023-03-11)
DX: A41.51 Sepsis due to Escherichia coli [E. coli] (principal); N17.0 Acute kidney failure with tubular necrosis; T86.12 Kidney transplant failure; N10 Acute pyelonephritis; N18.32 Chronic kidney disease, stage 3b; I12.9 Hypertensive chronic kidney disease with stage 1 through stage 4 chronic kidney disease, or unspecified chronic kidney disease; Z16.12 Extended spectrum beta lactamase (ESBL) resistance; Z20.822 Contact with and (suspected) exposure to COVID-19; Z16.20 Resistance to unspecified antibiotic; K57.30 Diverticulosis of large intestine without perforation or abscess without bleeding; Y83.0 Surgical operation with transplant of whole organ as the cause of abnormal reaction of the patient, or of later complication, without mention of misadventure at the time of the procedure; Z90.710 Acquired absence of both cervix and uterus; Z82.3 Family history of stroke; Y92.89 Other specified places as the place of occurrence of the external cause
CPT/HCPCS: 36415; 74176; 80048; 80053; 80197; 81001; 83930; 84484; 85025; 87040; 87081; 87086; 87088; 87186; 87426; 87804; 96365; 96366; G0378; J0696; J1335; J1885; J2185; J7060; J7507

== ENCOUNTER 2023-06-09 23:12 | Inpatient (IN) | payer MEDICAID ==
[~2023-06-09] VITALS: Ht 162.6 cm; Wt 61.5 kg
[~2023-06-09 23:12] MED LIST changes: -AMLO1TAB22 PO; +AMLO1TAB23 PO; +CIPR500T4 PO; +DILT-93 PO; -DILT180C49 PO; +LABE200T33 PO; -LABE200T7 PO; +LOSA-535 PO; -LOSA50TA46 PO
[2023-06-10 03:28] LABS: Basophils # (auto) 0 10 ^3/uL (0-0.2); Basophils % (auto) 0.4 % (0.0-2.0); Eosinophils # (auto) 0.1 10 ^3/uL (0-0.8); Eosinophils % (auto) 0.8 % (0.0-7.0); Hematocrit 33.7 % (36.0-46.0); Hemoglobin 10.7 g/dL (12.2-16.2); Lymphocytes # (auto) 0.6 10 ^3/uL (0.4-5.4); Lymphocytes % (auto) 5.1 % (10.0-50.0); Mean Corpuscular Hemoglobin 29.7 pg (28.0-32.0); Mean Corpuscular Hgb Conc. 31.9 g/dL (32.0-36.0); Mean Corpuscular Volume 93.2 fL (80.0-100.0); Monocytes # (auto) 0.8 10 ^3/uL (0-1.3); Neutrophils # (auto) 9.9 10 ^3/uL (1.6-8.6); Neutrophils % (auto) 86.7 % (37.0-80.0); Nucleated Red Blood Cells % 0.1 %; Red Blood Cells 3.61 10^6/uL (4.0-5.20); Red Cell Distribution Width 14.2 % (11.8-14.3); White Blood Cell 11.4 10^3/uL (4.4-10.8)
[2023-06-10 03:38] LABS: Urine Bacteria NONE SEEN /hpf (None Seen); Urine Blood 2+ /uL (Negative); Urine Clarity HAZY (Clear); Urine Color Colorless (Yellow); Urine Protein, UAD 1+ (Negative); Urine Specific Gravity 1.009 (1.001-1.035); Urine Urobilinogen Normal (Negative); Urine WBC 499 /hpf (0 - 5); Urine WBC Clumps PRESENT /hpf (None Seen); Urine pH 5.5 (5.0-8.0)
[2023-06-10 04:23] LABS: Alanine Aminotransferase 15 U/L (7-40); Albumin 4.2 g/dL (3.2-4.8); Alkaline Phosphatase 125 U/L (46-116); Anion Gap 8 (5-15); Aspartate Aminotransferase 15 U/L (13-40); BUN/Creatinine Ratio 22.1 (10.0-20.0); Bilirubin, Total 0.6 mg/dL (0.2-1.0); Blood Urea Nitrogen 31 mg/dL (9-23); Calcium 9.4 mg/dL (8.7-10.4); Carbon Dioxide 23 mmol/L (20-30); Chloride 107 mmol/L (98-107); Glucose 105 mg/dL (74-106); Potassium 3.8 mmol/L (3.5-5.1); Sodium 138 mmol/L (136-145); Total Protein 6.4 g/dL (5.7-8.2)
[2023-06-10] MEDS: KETOROLAC TROMETH 30 MG/ML 1ML VIAL IV ONE (12:26)
[2023-06-10] MEDS: ENOXAPARIN SOD 40 MG/0.4 ML SYRINGE SC SCH (12:27)
[2023-06-10] MEDS: SODIUM CHLORIDE 0.9% 1,000 ML IV SCH (12:27)
[2023-06-10 14:32] VITALS: PULSE 88; RESP 21; O2SAT 98
[2023-06-10] MEDS: cefTRIAXone 2GM/50ML D5W 50 ML IV ONE (16:18)
[2023-06-10 18:01] VITALS: PULSE 98; RESP 18; O2SAT 98
[2023-06-10 20:00] VITALS: RESP 18; O2SAT 99
[2023-06-10 21:39] VITALS: BP 124/54; PULSE 91; RESP 18; TEMP 97.7; O2SAT 99
[2023-06-10] MEDS: ACETAMINOPHEN 325 MG TAB PO PRN (23:39)
[2023-06-11] VITALS (9 sets, daily range): BP systolic 122–161; BP diastolic 62–84; PULSE 86–110; RESP 16–18; TEMP 97.8–101.7; O2SAT 95–99
[2023-06-11 04:18] LABS: Alanine Aminotransferase 18 U/L (7-40); Albumin 3.8 g/dL (3.2-4.8); Alkaline Phosphatase 106 U/L (46-116); Anion Gap 10 (5-15); Aspartate Aminotransferase 20 U/L (13-40); BUN/Creatinine Ratio 14.2 (10.0-20.0); Blood Urea Nitrogen 24 mg/dL (9-23); Calcium 9.6 mg/dL (8.7-10.4); Carbon Dioxide 21 mmol/L (20-30); Chloride 109 mmol/L (98-107); Glucose 126 mg/dL (74-106); Potassium 3.4 mmol/L (3.5-5.1); Sodium 140 mmol/L (136-145)
[2023-06-11 04:19] LABS: Bilirubin, Total 0.9 mg/dL (0.2-1.0)
[2023-06-11 04:45] LABS: Basophils # (auto) 0 10 ^3/uL (0-0.2); Basophils % (auto) 0.1 % (0.0-2.0); Eosinophils # (auto) 0 10 ^3/uL (0-0.8); Eosinophils % (auto) 0.1 % (0.0-7.0); Hematocrit 34.6 % (36.0-46.0); Hemoglobin 11.3 g/dL (12.2-16.2); Lymphocytes # (auto) 0.3 10 ^3/uL (0.4-5.4); Mean Corpuscular Hemoglobin 30.4 pg (28.0-32.0); Mean Corpuscular Hgb Conc. 32.6 g/dL (32.0-36.0); Mean Corpuscular Volume 93.4 fL (80.0-100.0); Monocytes % (auto) 6.6 % (0.0-12.0); Neutrophils # (auto) 13.2 10 ^3/uL (1.6-8.6); Neutrophils % (auto) 91.2 % (37.0-80.0); Red Blood Cells 3.71 10^6/uL (4.0-5.20); Red Cell Distribution Width 14.3 % (11.8-14.3); White Blood Cell 14.5 10^3/uL (4.4-10.8)
[2023-06-11] MEDS: cefTRIAXone 1GM/50ML D5W 50 ML IV SCH (09:46)
[2023-06-11] MEDS: MYCOPHENOLIC ACID 180 MG PO SCH (09:50)
[2023-06-11] MEDS: TACROLIMUS 1 MG CAP PO SCH (09:50)
[2023-06-11] MEDS ORDERED: CHOL200021 PO (14:14)
[2023-06-11] MEDS ORDERED: HYDR-2792 PO (14:20)
[2023-06-11] MEDS ORDERED: METH-1286 PO (14:20)
[2023-06-11] MEDS: LOSARTAN POTASSIUM 50 MG TAB PO SCH (15:03)
[2023-06-11] MEDS: dilTIAZem HCL 180MG ER CAP PO SCH (15:05)
[2023-06-11] MEDS: ONDANSETRON HCL 4 MG/2 ML VIAL IV PRN (18:21)
[2023-06-11] MEDS: KETOROLAC TROMETH 30 MG/ML 1ML VIAL IV PRN (18:25)
[2023-06-11 20:03] LABS: Magnesium 1.8 mg/dL (1.6-2.6)
[2023-06-11 20:05] LABS: Phosphorus 2.8 mg/dL (2.4-5.1)
[2023-06-11] MEDS: hydrALAZINE HCL 20 MG/ML VL IV PRN (20:52)
[2023-06-12] VITALS (8 sets, daily range): BP systolic 134–162; BP diastolic 72–82; PULSE 94–111; RESP 16–18; TEMP 98.1–98.6; O2SAT 96–99
[2023-06-12 10:30] LABS: Protein, Urine 81.7 mg/dL (0.0-11.9)
[2023-06-12 10:33] LABS: Creatinine, Urine 75.35 mg/dL (30.0-125.0); Creatinine, Urine 76.22 mg/dL (30.0-125.0); Urine Protein/Creatinine Ratio 1.07
[2023-06-12] MEDS: MAGNESIUM SULFATE 1GM/100ML 100 ML IV SCH (11:06)
[2023-06-12] MEDS: POTASSIUM EFFERVESENT TAB 25 MEQ PO ONE (11:29)
[2023-06-12] MEDS: SODIUM BICARB 50mEq/50ml Vial 50 ML in SOD CHL 0.45% 1,000 ML IV SCH (12:54)
[2023-06-12] MEDS: ERTAPENEM SOD INJ 1 GM in SODIUM CHL 0.9% 50 ML IV SCH (14:24)
[2023-06-12] MEDS: TACROLIMUS 1 MG CAP PO SCH (21:24)
[2023-06-13] VITALS (7 sets, daily range): BP systolic 108–154; BP diastolic 57–83; PULSE 85–103; RESP 16–20; TEMP 98.2–98.6; O2SAT 95–97
[2023-06-13] MEDS ORDERED: ACETAMINOPHEN 325 MG TAB PO PRN (10:00)
[2023-06-13] MEDS: MAGNESIUM SULFATE 1GM/100ML 100 ML IV SCH (12:05)
[2023-06-14] VITALS (7 sets, daily range): BP systolic 149–157; BP diastolic 69–79; PULSE 76–105; RESP 16–18; TEMP 97.5–99; O2SAT 96–98
[2023-06-14 12:13] LABS: Chloride 104 mmol/L (98-107); Potassium 3.4 mmol/L (3.5-5.1); Sodium 138 mmol/L (136-145)
[2023-06-14 12:14] LABS: Anion Gap 5 (5-15); Calcium 9.8 mg/dL (8.5-10.1); Carbon Dioxide 29 mmol/L (20-30)
[2023-06-14 12:19] LABS: BUN/Creatinine Ratio 9.4 (10.0-20.0); Blood Urea Nitrogen 12 mg/dL (9-23); Glucose 142 mg/dL (74-106)
[2023-06-14] MEDS: ERGOCALCIFEROL 50,000 UNIT(1.25MG) CAP PO SCH (15:45)
[2023-06-14] MEDS: POTASSIUM CHL 20 Meq TABLET PO ONE (15:45)
== END 2023-06-14 20:10 | disposition home health service (06) | DRG 463 ==
LOC: ER 23:12 → OVERFLOW 06-10 09:16 → EAST 06-10 17:54
PROVIDERS: ADMIT Nurse Practitioner Family; ATTEND Family Medicine
DX: N30.00 Acute cystitis without hematuria (principal); N17.0 Acute kidney failure with tubular necrosis; T86.19 Other complication of kidney transplant; E44.0 Moderate protein-calorie malnutrition; D84.821 Immunodeficiency due to drugs; E87.20 Acidosis, unspecified; D63.1 Anemia in chronic kidney disease; E86.0 Dehydration; I12.9 Hypertensive chronic kidney disease with stage 1 through stage 4 chronic kidney disease, or unspecified chronic kidney disease; Z94.0 Kidney transplant status; N18.9 Chronic kidney disease, unspecified; Z68.23 Body mass index [BMI] 23.0-23.9, adult; E87.6 Hypokalemia; E83.42 Hypomagnesemia; B96.20 Unspecified Escherichia coli [E. coli] as the cause of diseases classified elsewhere; Z16.12 Extended spectrum beta lactamase (ESBL) resistance; Z79.60 Long term (current) use of unspecified immunomodulators and immunosuppressants; Y83.0 Surgical operation with transplant of whole organ as the cause of abnormal reaction of the patient, or of later complication, without mention of misadventure at the time of the procedure; Z90.710 Acquired absence of both cervix and uterus
CPT/HCPCS: 36415; 74176; 80048; 80053; 80197; 81001; 82306; 82570; 83735; 83970; 84100; 84156; 84300; 85025; 87040; 87086; 87088; 87186; G0378; J1335; J1885; J2405; J7507

== ENCOUNTER 2024-10-14 19:21 | Emergency (ER) | payer MEDICAID ==
[~2024-10-14] VITALS: Ht 162.6 cm; Wt 57.3 kg
[~2024-10-14 19:21] MED LIST changes: -CEFD300C2 PO; +CHOL200021 PO; -CHOL20TA PO; -CIPR500T4 PO; -DEX4T PO; +HYDR-2792 PO; +METH-1286 PO; -ZINC220T6 PO
--- NOTE | 2024-10-14 19:49 | ED.PDOC ---
General HPI Comments Patient is a Slovak-speaking only 59y F who presents to the ED for chief complaint of urinary complaints. Pt states over the past 3x days, she has been having intermittent dysuria, frequency and urgency for the past 3 days. Pt states 1x month prior she had PICC line placed for complicated UTI and discharged at [facility]. Pt states she is concerned about possible infection going to kidney due to recent kidney transplant for which she is on cyclosporin e. Pt in the ED,otherwise denies any other symptoms at this time. Vital signs were stable at arrival. Time Seen by MD: 19:40 Primary Care Provider: Janie Reviewed notes: Nurses Notes, Medications, Allergies Allergies: Coded Allergies: NO KNOWN ALLERGIES (Unverified , 12/31/18) Home Meds Active Scripts Aspirin (ADELAIDA ASPIRIN EC LOW DOSE) 81 Mg Tab, 1 TAB PO DAILY, #30 TAB Prov:NUHA MORGAN MD 04/05/20 Ascorbic Acid (Gnp Vitamin C W/Tika Hips) 1,000 Mg Tab, 1000 MG PO DAILY, #30 TAB Prov:NUHA MORGAN MD 04/05/20 Budesonide (Inhalation) (Budesonide) 1 Mg/2 Ml [place], 360 MCG IN BID for 14 Days, #1 INHALER Prov:NUHA MORGAN MD 04/05/20 Albuterol Sulfate (VENTOLIN MDI) 90 Mcg Ih, 90 MCG IN Q6HP PRN, #1 INH Prov:NUHA MORGAN MD 04/05/20 Omeprazole (Omeprazole Dr) 20 Mg Cap, 20 MG PO DAILY for 90 Days, CAP Prov:Sommer Galindo 04/04/20 Reported Medications Hydralazine Hcl (Hydralazine Hcl) 10 Mg Tab, 10 MG PO BID, MG 06/11/23 Methenamine Hippurate (Hiprex) 1 Gm Tab, 1 GM PO BID, TAB 06/11/23 Cholecalciferol (D3) 2,000 Unit Tab, 2000 UNIT PO DAILY, TAB 06/11/23 Losartan Potassium (Losartan Potassium) 100 Mg Tab, 1 TAB PO DAILY, #30 TAB 5 Refills 03/09/23 Diltiazem HCl Extended Release (Tiadylt ER) 180 Mg Cap, 180 MG PO DAILY, CAP 03/09/23 Amlodipine Besylate (Amlodipine Besylate) 10 Mg Tab, 1 TAB PO DAILY, #30 TAB 5 Refills 03/09/23 Prednisone (Prednisone) 2.5 Mg Tab, 2.5 MG PO DAILY, TAB 03/09/23 Labetalol Hcl (Labetalol Hcl) 200 Mg Tab, 200 MG PO BID for HTN for 30 Days, MG 10/12/21 Tacrolimus (ASTAGRAF XL) 1 Mg Cap, 3 CAP PO BID 10/12/21 Acetaminophen (Tylenol Extra Strength) 500 Mg Tab, 500 MG PO Q6HP, TAB 04/04/20 Cinacalcet Hydrochloride (Sensipar) 30 Mg Tab, 1 TAB PO DAILY, #30 TAB 11 Refills 04/04/20 Folic Acid (Folic Acid) 1 Mg Tab, 1 MG PO DAILY for 30 Days, MG 04/04/20 Mycophenolate Sodium (Myfortic) 180 Mg Tab, 2 TAB PO BID, TAB 04/04/20 Information Source: Patient Mode of Arrival: Ambulatory Severity: Moderate Timing: Days Duration: Since onset Prehospital treatment: None Onset: Spontaneous Symptoms: Dysuria History of: Other (Recent kidney transplant) Location: Suprapubic associated signs and symptoms: Dysuria Past Medical History PAST MEDICAL HISTORY: CKF, HTN, Thyroid Surgical History: Hysterectomy Surgical History (Other): Recent kidney transplant per patient SCREEN VENT BINDER History: Denies all SCREEN VENT BINDER Hx Family History Family History: Reviewed,noncontributory to illness Social History Smoker: Non-Smoker Alcohol: Denies ETOH Use Drugs: Denies Drug Use Lives In: Home Constitutional: denies: chills, diaphoresis, fatigue, fever, malaise, sweats, weakness, others EENTM: denies: blurred vision, double vision, ear bleeding, ear discharge, ear drainage, ear pain, ear ringing, eye pain, eye redness, hearing loss, mouth pain, mouth swelling, nasal discharge, nose bleeding, nose congestion, nose pain, photophobia, tearing, throat pain, throat swelling, voice changes, others Respiratory: denies: cough, hemoptysis, orthopnea, SOB at rest, shortness of breath, SOB with excertion, stridor, wheezing, others Cardiovascular: denies: chest pain, dizzy spells, diaphoresis, Dyspnea on exertion, edema, irregular heart beat, left arm pain, lightheadedness, palpitations, PND, syncope, others Gastrointestinal: denies: abdomen distended, abdominal pain, blood streaked bowels, constipated, diarrhea, dysphagia, difficulty swallowing, hematemesis, melena, nausea, poor appetite, poor fluid intake, rectal bleeding, rectal pain, vomiting, others Genitourinary: reports: dysuria; denies: abnormal vagina bleeding, burning, dyspareunia, flank pain, frequency, hematuria, incontinence, pain, , vagina discharge, urgency, others Neurological: denies: dizziness, fainting, headache, left sided numbness, left sided weakness, numbness, paresthesia, pre-existing deficit, right sided numbness, right sided weakness, seizure, speech problems, tingling, tremors, weakness, others Musculoskeletal: denies: back pain, gout, joint pain, joint swelling, muscle pain, muscle stiffness, neck pain, others Integumetry: denies: bruises, change in color, change in hair/nails, dryness, laceration, lesions, lumps, rash, wounds, others Allergic/Immunocompromised: denies: Difficulty Healing, Frequent Infections, Hives, Itching, others Hematologic/Lymphatic: denies: anemia, blood clots, easy bleeding, easy bruising, swollen glands, others Endocrine: denies: excessive hunger, excessive sweating, excessive thirst, excessive urination, flushing, intolerance to cold, intolerance to heat, unexplained weight gain, unexplained weight loss, others Psychiatric: denies: anxiety, bipolar disorder, depression, hopeless, panic disorder, schizophrenia, sleepless, suicidal, others All Other Systems: Reviewed and Negative (see HPI) Physical Exam General Appearance: Moderate Distress (Patient appears to be in [id number] distress at time of evaluation), Normal HEENT: Normal ENT Inspection, Pharynx Normal, TMs Normal Neck: Full Range of Motion, Non-Tender, Normal, Normal Inspection Respiratory: Chest Non-Tender, Lungs Clear, No Accessory Muscle Use, No Respiratory Distress, Normal Breath Sounds Cardiovascular: No Edema, No JVD, No Murmur, No Gallop, Normal Peripheral Pulses, Regular Rate/Rhythm Breast Exam: Deferred Gastrointestinal: Other (Diffuse bilateral lower pelvic tenderness to palpa tion. Mild suprapubic tenderness. No signs of trauma.) Genitalia: Deferred Pelvic: Deferred Rectal: Deferred Extremities: No calf tenderness, Normal capillary refill, Normal inspection, Normal range of motion, Non-tender, No pedal edema Neurologic: Alert, No Motor Deficits, Normal Affect, Normal Mood, No Sensory Deficits Cerebellar Function: Normal Reflexes: Normal Skin: Dry, Normal Color, Warm Lymphatic: No Adenopathy Was a procedure done? Was a procedure done?: No Differential Diagnosis Kidney stone (Female): Musculoskeletal pain Urinary Problem (Female): Pyelonephritis, Urinary retention, UTI X-Ray, Labs, Meds, VS Vital Signs Date Time Temp Pulse Resp B/P (MAP) Pulse Ox O2 Delivery O2 Flow Rate FiO2 10/14/24 19:40 98.3 76 18 133/79 (97) 97 98.3 Lab Test 10/14/24 19:42 10/14/24 19:40 Range/Units White Blood Count 4.9 4.4-10.8 10^3/uL Red Blood Count 3.77 L 4.0-5.20 10^6/uL Hemoglobin 12.1 L 12.2-16.2 g/dL Hematocrit 35.5 L 36.0-46.0 % Mean Corpuscular Volume 94.2 80.0-100.0 fL Mean Corpuscular Hemoglobin 32.0 28.0-32.0 pg Mean Corpuscular Hemoglobin Concent 34.0 32.0-36.0 g/dL Red Cell Distribution Width 14.2 11.8-14.3 % Platelet Count 144 140-450 10^3/uL Mean Platelet Volume 9.9 6.9-10.8 fL Neutrophils (%) (Auto) 62.9 37.0-80.0 % Lymphocytes (%) (Auto) 22.2 10.0-50.0 % Monocytes (%) (Auto) 12.0 0.0-12.0 % Eosinophils (%) (Auto) 2.3 0.0-7.0 % Basophils (%) (Auto) 0.6 0.0-2.0 % Neutrophils # (Auto) 3.1 1.6-8.6 10 ^3/uL Lymphocytes # (Auto) 1.1 0.4-5.4 10 ^3/uL Monocytes # (Auto) 0.6 0-1.3 10 ^3/uL Eosinophils # (Auto) 0.1 0-0.8 10 ^3/uL Basophils # (Auto) 0 0-0.2 10 ^3/uL Nucleated Red Blood Cells 0.0 % Sodium Level 140 136-145 mmol/L Potassium Level 4.2 3.5-5.1 mmol/L Chloride Level 107 98-107 mmol/L Carbon Dioxide Level 21 20-31 mmol/L Anion Gap 12 5-15 Blood Urea Nitrogen 35 H 9-23 mg/dL Creatinine 1.71 H 0.550-1.02 mg/dL Glomerular Filtration Rate Calc 34 >90 mL/min BUN/Creatinine Ratio 20.5 H 10.0-20.0 Serum Glucose 81 74-106 mg/dL Calcium Level 8.8 8.7-10.4 mg/dL Total Bilirubin 0.4 0.2-1.0 mg/dL Aspartate Amino Transferase (AST) 20 13-40 U/L Alanine Aminotransferase (ALT) 21 7-40 U/L Alkaline Phosphatase 198 H 46-116 U/L B-Type Natriuretic Peptide 188.65 0-100 pg/mL Total Protein 6.4 5.7-8.2 g/dL Albumin 4.4 3.2-4.8 g/dL Urine Color Dark-yellow Yellow Urine Clarity Clear Clear Urine pH 5.0 5.0-9.0 Urine Specific [place] 1.006 1.001-1.035 Urine Protein Negative Negative Urine Ketones Negative Negative Urine Blood Negative Negative /uL Urine Nitrite Negative Negative Urine Bilirubin Negative Negative Urine Urobilinogen Normal Negative mg/dL Urine Leukocyte Esterase 1+ Negative /uL Urine RBC 1 0 - 4 /hpf Urine Microscopic WBC 8 H 0-5 /HPF Urine Squamous Epithelial Cells None seen <5 /hpf Urine Bacteria Few H None Seen /hpf Urine Glucose Normal Normal mg/dL X-Ray, Labs, Meds, VS Comment All studies performed the ED were evaluated by me personally. Urinalysis confirmed a urinary tract infection. Serum studies were unremarkable for any systemic concerns. Patient was given her 1st dose of antibiotics prior to discharge. Time of 1ST Reevaluation: 21:40 Reevaluation 1ST: Improved Consultation: PCP Patient Education/Counseling: Diagnosis, Treatment Family Education/Counseling: Diagnosis, Treatment, No Family Present SEPSIS Sepsis Screen Recent Procedure: No On Antibiotic Therapy: No Respiratory Rate >20: No Heart Rate >90: No Temp<36 C (96.8 F) or >38.3 C: No SBP <90 or MAP <65 mmHG: No New Acute Mental Status Change: No Is the patient on CPAP, BIPAP,: No Physician Orders Urine Bacterial Culture (10/14/24 19:33) Sulfamethoxazole W/Trimeth Tab (Bactrim (10/14/24 21:45) Vital Signs Date Time Temp Pulse Resp B/P (MAP) Pulse Ox O2 Delivery O2 Flow Rate FiO2 10/14/24 19:40 98.3 76 18 133/79 (97) 97 98.3 Laboratory Tests Test 10/14/24 19:42 White Blood Count 4.9 10^3/uL (4.4-10.8) Departure 1 Departure Time of Disposition: 21:40 Impression: Primary Impression: UTI (urinary tract infection) Disposition: HOME / SELF CARE / HOMELESS Condition: Stable Additional Instructions: Advise utilizing antibiotics as directed until completion as well as additional medication as needed for pain. Good hydration and healthy nutrition throughout. e-Prescriptions Acetaminophen (Acetaminophen) 500 Mg Tab 500 MG PO Q4HP PRN, #30 TAB Prov: ARLINE JUAREZ PAC 10/14/24 Sulfamethoxazole W/Trimethopri (Bactrim Ds Tablet) 1 Tab Tb 1 TAB PO BID for 5 Days, #10 TAB Prov: ARLINE JUAREZ PAC 10/14/24 Discharged With: Self, Friend Critical Care Note Critical Care Time?: No Stability Stability form required: No Heart Score Heart Score: Heart Score Response (Comments) Value History N/A 0 EKG N/A 0 Age N/A 0 Risk Factors N/A 0 Troponin N/A 0 Total 0 I personally scribed for ARLINE JUAREZ PAC ([email or web address]) on 10/14/24 at 19:49. Electronically submitted by Je Elena ([email or web address]). I personally scribed for ARLINE JUAREZ PAC ([email or web address]) on 10/14/24 at 19:56. Electronically submitted by Je Elena (YING). ARLINE JUAREZ PAC Oct 14, 2024 19:49
[2024-10-14 20:06] LABS: Hematocrit 35.5 % (36.0-46.0); Hemoglobin 12.1 g/dL (12.2-16.2); Mean Corpuscular Hemoglobin 32.0 pg (28.0-32.0); Mean Corpuscular Volume 94.2 fL (80.0-100.0); Nucleated Red Blood Cells % 0.0 %
[2024-10-14 20:18] LABS: Urine Protein, UAD Negative (Negative)
[2024-10-14 20:24] LABS: Alanine Aminotransferase 21 U/L (7-40); Albumin 4.4 g/dL (3.2-4.8); Anion Gap 12 (5-15); BUN/Creatinine Ratio 20.5 (10.0-20.0); Bilirubin, Total 0.4 mg/dL (0.2-1.0); Calcium 8.8 mg/dL (8.7-10.4); Carbon Dioxide 21 mmol/L (20-31); Chloride 107 mmol/L (98-107); Glucose 81 mg/dL (74-106); Potassium 4.2 mmol/L (3.5-5.1); Sodium 140 mmol/L (136-145); Total Protein 6.4 g/dL (5.7-8.2)
[2024-10-14 20:29] LABS: Alkaline Phosphatase 198 U/L (46-116); Blood Urea Nitrogen 35 mg/dL (9-23)
[2024-10-14] MEDS ORDERED: BACDST PO (21:41)
[2024-10-14] MEDS ORDERED: ACET500T58 PO (21:41)
[2024-10-14 21:52] VITALS: BP 158/83; PULSE 71; RESP 19; TEMP 98; O2SAT 98
[2024-10-14] MEDS: SULFAMETHOX W/TRIMETH(800/160MG) DS TAB PO ONE (21:52)
== END 2024-10-14 21:52 | disposition home or self-care (01) ==
LOC: ER 19:21
DX: N39.0 Urinary tract infection, site not specified (principal); R06.02 Shortness of breath; Z79.82 Long term (current) use of aspirin; Z79.899 Other long term (current) drug therapy; Z87.440 Personal history of urinary (tract) infections; Z90.710 Acquired absence of both cervix and uterus; Z94.0 Kidney transplant status
CPT/HCPCS: 36415; 80053; 81001; 83880; 85025; 87086